=== PATIENT | male | born 1945 | race Caucasian/White ===

== ENCOUNTER 2016-08-18 07:27 | Emergency (ER) | payer MEDICARE, BC ==
[2016-08-18 07:47] VITALS: BP 143/81
[2016-08-18] MEDS ORDERED: Sodium Chloride 0.9% 10 ML Syringe FLUSH PRN (08:05)
[2016-08-18] MEDS ORDERED: HYDROmorphone 1 MG/ML Syringe IVPUSH ONE (08:06)
[2016-08-18] MEDS ORDERED: Cyclobenzaprine 10 MG Tab PO ONE (08:06)
[2016-08-18] MEDS ORDERED: Nitroglycerin 0.4 MG Tab.SL SL PRN (08:12)
--- NOTE | 2016-08-18 09:55 | EDM.PDOC ---
ED HPI LOWER BACK PAIN/INJURY - General Chief Complaint: Back Pain or Injury Stated Complaint: HAD KNEE SURGERY/SEVERE PAIN Time Seen by Provider: 08/18/16 08:00 Source: Reports: Patient, Family History Limitations: Reports: No limitations - History of Present Illness INITIAL COMMENTS - FREE TEXT/NARRATIVE: pt arrived with severe pain in the left lumbar area. He did fall prior to leaving the hosp on the . He was having some back pain prior to falling. He had Knee pain on fri or of last week. Timing/Duration: Reports: Hour(s):, Getting worse Location: Reports: lower Place: other (pt fell pripor to leaving the hosp.) - Related Data Allergies/ADRs: Allergies Allergy/AdvReac Type Severity Reaction Status Date / Time No Known Allergies Allergy Verified 08/18/16 07:50 Home Meds: Home Meds Multivitamin with Minerals [Multiple Vitamin] 1 tab PO DAILY 07/30/13 [History] Simvastatin [Zocor] 10 mg PO .3TIMES A WEEK 07/30/13 [History] Aspirin [Garvin Aspirin] 325 mg PO DAILY 06/29/15 [History] Urea [Urea 40% Crm] 1 applic TOP BID 04/22/16 [History] oxyCODONE 5 mg PO Q4HR PRN 08/18/16 [History] Past Medical History HEENT History: Reports: Impaired vision Cardiovascular History: Reports: High cholesterol, Other (see below) Other Cardiovascular History: rhumatic fever as child Respiratory History: Reports: Sleep apnea Gastrointestinal History: Reports: Colon polyp, GERD, Hiatal hernia Other Gastrointestinal History: patients states he thinks he has a hiatal hernia as a result of scar tissue from prior surgery Genitourinary History: Reports: Prostate disorder, Other (see below) Other Genitourinary History: frequent urination Musculoskeletal History: Reports: Arthritis, Fracture, Other (see below) Other Musculoskeletal History: inflammation of muscle to right shoulder and left knee pain and surgery for left knee replacement and also right knee replacement 14 years ago Oncologic (Cancer) History: Reports: Renal Other Oncologic History: left kidney removed as a result of cancer Dermatologic History: Reports: Psoriasis Other Dermatologic History: history of psoriasis to right knee - Infectious Disease History Infectious Disease History: Reports: Chicken pox, Measles, Mumps Other Infectious Disease History: rheumatic fever as a child - Past Surgical History HEENT Surgical History: Reports: Oral surgery, Tonsillectomy Cardiovascular Surgical History: Reports: None GI Surgical History: Reports: Colonoscopy, EGD, Gita fundoplication, Other ( see below) Other GI Surgeries/Procedures: left kidney removed removed few years ago due to cancer Musculoskeletal Surgical History: Reports: Knee replacement Other Musculoskeletal Surgeries/Procedures:: history of right knee replacement 10-14 years ago Oncologic Surgical History: Reports: Other (see below) Other Oncologic Surgeries/Procedures: left nephrectomy Social & Family History - Family History Family Medical History: Noncontributory - Tobacco Use Smoking Status *Q: Current Every Day Smoker Years of Tobacco use: 50 Packs/Tins Daily: 0.5 Used Tobacco, but Quit: No Second Hand Smoke Exposure: No - Caffeine Use Caffeine Use: Reports: Coffee - Alcohol Use Days Per Week of Alcohol Use: 5 Number of Drinks Per Day: 1 Total Drinks Per Week: 5 - Recreational Drug Use Recreational Drug Use: No ED ROS GENERAL - Review of Systems Review Of Systems: See Below Constitutional: Reports: no symptoms HEENT: Reports: No symptoms Respiratory: Reports: No Symptoms Cardiovascular: Reports: No symptoms Endocrine: Reports: no symptoms GI/Abdominal: Reports: No symptoms : Reports: other (some difficulty voiding. He is going in small amounts, He voided a small amount and had a bladder scan which showed 240. ) Musculoskeletal: Reports: other (Pain in the left side of his back. ) Skin: Reports: no symptoms Neurological: Reports: No Symptoms ED EXAM,LOWER BACK PAIN/INJURY - Physical Exam Exam: See Below Text/Narrative:: Pt arrived with pain in the left lumbar area. Exam Limited By: No limitations General Appearance: alert, anxious Ears: normal TMs Nose: normal inspection Throat/Mouth: Normal inspection Head: atraumatic Neck: normal inspection Respiratory/Chest: no respiratory distress Cardiovascular: regular rate, rhythm GI/Abdominal: soft, non tender (Male) Exam: Deferred Rectal (Males) Exam: Fecal impaction Back Exam: other (Pt is tender over the left lumbar area and appears ro have some sciatic irritation. ) Extremities: other ( Left knee is swollen but is not real uncomfortable for the pt, ) Neurological: alert, oriented x 3 Psychiatric: normal affect, anxious Course - Vital Signs Last Recorded V/S: Last Vital Signs Temp 37.3 C 08/18/16 07:46 Pulse 83 08/18/16 07:46 Resp 16 08/18/16 07:46 BP 143/81 H 08/18/16 07:46 Pulse Ox 94 L 08/18/16 07:46 - Orders/Labs/Meds Orders: Active Orders 24 hr Category Date Time Status Bladder Scan [RC] ONETIME Care 08/18/16 09:24 Active Lumbar Spine Min 4V [CR] Stat Exams 08/18/16 08:32 Taken Sodium Chloride 0.9% [Saline Flush] Med 08/18/16 08:05 Active 10 ml FLUSH ASDIRECTED PRN Saline Lock Insert [OM.PC] Routine Oth 08/18/16 08:05 Ordered Medication Orders Sodium Chloride (Saline Flush) 10 ml FLUSH ASDIRECTED PRN PRN Reason: Keep Vein Open Labs: Laboratory Tests 08/18/16 Range/Units 08:39 Urine Color Yellow Urine Appearance Clear Urine pH 5.0 (4.5-8.0) Ur Specific [place] 1.015 (1.008-1.030) Urine Protein Negative (NEGATIVE) mg/dL Urine Glucose (UA) Normal (NEGATIVE) mg/dL Urine Ketones Negative (NEGATIVE) mg/dL Urine Occult Blood Negative (NEGATIVE) Urine Nitrite Negative (NEGAITVE) Urine Bilirubin Negative (NEGATIVE) Urine Urobilinogen Normal (NORMAL) mg/dL Ur Leukocyte Esterase Negative (NEGATIVE) Urine RBC 0-5 (0-5) Urine WBC 0-5 (0-5) Ur Epithelial Cells Few Amorphous Sediment Not seen Urine Bacteria Few Urine Mucus Not seen Meds: Medications Generic Name Dose Route Start Last Admin Trade Name Freq PRN Reason Stop Dose Admin Sodium Chloride 10 ml 08/18/16 08:05 Saline Flush FLUSH ASDIRECTED PRN Keep Vein Open Discontinued Medications Generic Name Dose Route Start Last Admin Trade Name Freq PRN Reason Stop Dose Admin Cyclobenzaprine HCl 10 mg 08/18/16 08:06 08/18/16 08:19 Flexeril PO 08/18/16 08:07 10 mg ONETIME ONE Administration Hydromorphone HCl 1 mg 08/18/16 08:06 08/18/16 08:28 Dilaudid IVPUSH 08/18/16 08:07 1 mg ONETIME ONE Administration Nitroglycerin 0.4 mg 08/18/16 08:12 Nitrostat SL 08/18/16 08:23 Q5M PRN Chest Pain - Re-Assessments/Exams Free Text/Narrative Re-Assessment/Exam: 08/18/16 10:04 Pt has severe pain in his left lower back. He did have a fall prior tp leaving the hosp. An xray was obtained on the lumbar spine wich did not do show any fractures. He does have narrowing at the L5-S1 lumbar area. Departure - Departure Time of Disposition: 10:05 Disposition: Home, Self-Care 01 Condition: fair Clinical Impression: Lumbar back pain, History of total knee arthroplasty Forms: ED Department Discharge Care Plan Goals: appt with Dr Kennedy on Friday to assess his back problem, cont oxycodone for pain, flexeril 10mg at bedtime, torodol 10mg qid for the next 5 days for the low back pain. - My Orders Last 24 Hours: My Active Orders 08/18/16 08:05 Sodium Chloride 0.9% [Saline Flush] 10 ml FLUSH ASDIRECTED PRN Saline Lock Insert [OM.PC] Routine 08/18/16 08:32 Lumbar Spine Min 4V [CR] Stat 08/18/16 09:24 Bladder Scan [RC] ONETIME - Assessment/Plan Last 24 Hours: My Active Orders 08/18/16 08:05 Sodium Chloride 0.9% [Saline Flush] 10 ml FLUSH ASDIRECTED PRN Saline Lock Insert [OM.PC] Routine 08/18/16 08:32 Lumbar Spine Min 4V [CR] Stat 08/18/16 09:24 Bladder Scan [RC] ONETIME
[2016-08-18] MEDS ORDERED: Ketorolac 10 MG Tab PO ONE ×2 (10:10→10:33)
[2016-08-18] MEDS ORDERED: Ketorolac 60 MG/2 ML SDV IM ONE (10:28)
[2016-08-18] MEDS ORDERED: Acetaminophen/oxyCODONE 325-5 MG Tab PO ONE (10:29)
--- NOTE | 2016-08-19 09:14 | CR ---
Lumbar Spine Min 4V HISTORY: pain in left buttock after a fall. FINDINGS: There is mild rotoscoliosis of the lumbar spine convex to the left. Vertebral alignment is otherwise satisfactory. No compression fracture is identified. Moderate disc space narrowing is pre sent at L3-4, L4-5, and L5-S1. There is mild narrowing at L1-2 and L2-3. Small anterolateral aspirat ion noted diffusely along the lumbar spine. Spinous processes, posterior elements, and pedicles appe ar intact and in satisfactory alignment. Mild atherosclerotic calcification is noted in the distal a bdominal aorta. Perivertebral soft tissues are unremarkable. No definite pars defects can be seen on the oblique views. There is mild facet arthropathy bilaterally at L4-5 and L5-S1. IMPRESSION: Degenerative and hypertrophic changes lumbar spine. Slight rotoscoliosis convex to the l eft. No acute abnormality is identified.
== END 2016-08-18 11:12 | disposition home or self-care (01) ==
LOC: JP.ED 07:27
DX: M54.5 Low back pain (principal); E78.00 Pure hypercholesterolemia, unspecified; K21.9 Gastro-esophageal reflux disease without esophagitis; F17.210 Nicotine dependence, cigarettes, uncomplicated; Z85.53 Personal history of malignant neoplasm of renal pelvis; Z96.659 Presence of unspecified artificial knee joint; Z98.890 Other specified postprocedural states; Z90.5 Acquired absence of kidney; Z79.82 Long term (current) use of aspirin; Z79.899 Other long term (current) drug therapy
CPT/HCPCS: 72110; 81001; 96374; 99284; A9270; J1170

== ENCOUNTER 2018-12-24 06:31 | Day surgery (SDC) | payer MEDICARE ==
[2018-12-24] MEDS ORDERED: Sodium Chloride 0.9% 10 ML Syringe FLUSH PRN (07:00)
[2018-12-24 08:35] VITALS: BP 132/81; PULSE 58
--- NOTE | 2018-12-24 11:42 | OR ---
DATE OF PROCEDURE: 12/24/2018 POSTOPERATIVE CARE: Postoperative care will be provided mainly at the [address] [place] [address] [facility] in conjunction with [facility] / [facility]. PREOPERATIVE DIAGNOSIS: Cataract, left eye. POSTOPERATIVE DIAGNOSIS: Cataract, left eye. PROCEDURE: Phacoemulsification with intraocular lens placement, left eye. ANESTHESIA: Topical and intracameral. ESTIMATED BLOOD LOSS: Minimal. COMPLICATIONS: None. PATHOLOGY SPECIMENS: None. SURGICAL FINDINGS: None. INDICATION FOR PROCEDURE: The patient is a 73-year-old male with history of a visually significant cataract in the left eye, which interfered with activities of daily living. This consisted of a nuclear sclerosis cataract. Following careful discussion of the risks, benefits and alternatives to cataract extraction with intraocular lens placement including blindness and , the patient elected to proceed, and informed, written consent was obtained prior to the procedure. DESCRIPTION OF THE PROCEDURE: The patient was previously identified, and a maryse placed above the left eye. All sources, including the patient, indicated that the left eye was the correct eye. The patient was subsequently taken to the operating room where standard monitors were applied. The patient was then prepped and draped in the usual sterile fashion for ophthalmic surgery. Attention was first directed at the 12 o'clock position where a paracentesis port was fashioned. Shugar solution followed by Viscoat was instilled into the eye. Attention was then directed to the 8:30 position where a triplanar incision was made in a near-clear manner using a keratome. A continuous capsulorrhexis was then made using a combination of the cystotome and Utrata forceps. Hydrodissection was achieved using a balanced salt solution, and the lens rotated nicely. Phacoemulsification was then done using a modified [id number] technique without complication. Phaco time was 7.32 CDE. The remaining cortex was removed using the irrigation/aspiration handpiece. Provisc was then instilled into the eye. A Technis lens, model [id number], at 21.5 Diopters was then placed in the capsular bag using an Shell injector. The remaining viscoelastic was removed using the irrigation/aspiration forceps. All wounds were then checked and found to be watertight. The lid speculum and drapes were removed. Maxitrol ointment was placed in the patient's left eye, and the eye was shielded. The patient tolerated the procedure well. The patient was instructed to follow up tomorrow. All needle and sponge counts were correct at the end of the procedure. There were no surgical findings. Bridgette Gonzalez MD /[id number]
== END 2018-12-24 08:50 | disposition home or self-care (01) ==
LOC: JP.SDS 06:31
PROVIDERS: ATTEND Ophthalmology
DX: H25.12 Age-related nuclear cataract, left eye (principal); C64.9 Malignant neoplasm of unspecified kidney, except renal pelvis; N18.9 Chronic kidney disease, unspecified; F17.200 Nicotine dependence, unspecified, uncomplicated; M19.90 Unspecified osteoarthritis, unspecified site
CPT/HCPCS: 66984; V2632

== ENCOUNTER 2021-09-20 10:33 | Day surgery (SDC) | payer MEDICARE ==
[~2021-09-20 10:33] MED LIST: Midazolam 1 MG/ML 2 ML SDV ONE; Propofol 200 MG/20 ML SDV ONE; fentaNYL 100 MCG/2 ML SDV ONE
[2021-09-20] MEDS ORDERED: Sodium Chloride 0.9% 1,000 ML IV SCH (11:00)
[2021-09-20 12:55] VITALS: BP 138/76; PULSE 57
== END 2021-09-20 13:25 | disposition home or self-care (01) ==
LOC: JP.SDS 10:33
PROVIDERS: ATTEND Surgery
DX: Z12.11 Encounter for screening for malignant neoplasm of colon (principal); D12.0 Benign neoplasm of cecum; D12.5 Benign neoplasm of sigmoid colon; K57.30 Diverticulosis of large intestine without perforation or abscess without bleeding; F17.200 Nicotine dependence, unspecified, uncomplicated; N18.9 Chronic kidney disease, unspecified
CPT/HCPCS: 45380; 45385; J2250; J2704; J3010; J7030; 88305

== ENCOUNTER 2023-02-25 16:49 | Observation (INO) | payer OTHER, MEDICARE ==
[2023-02-25] MEDS ORDERED: Sodium Chloride 0.9% 10 ML Syringe FLUSH PRN (16:53)
[2023-02-25] MEDS ORDERED: fentaNYL 50 MCG/ML SDV IVPUSH ONE (17:01)
[2023-02-25] MEDS ORDERED: Naloxone 0.4 MG/ML SDV IVPUSH PRN ×3 (17:01→19:46)
[2023-02-25 17:04] LABS: BASOPHILS ABSOLUTE AUTO 0.01 K/uL (0.00-0.10); BASOPHILS PERCENT AUTO 0.1 % (0.1-1.3); EOSINOPHILS ABSOLUTE AUTO 0.08 K/uL (0.00-0.40); EOSINOPHILS PERCENT AUTO 0.8 % (0.0-5.4); HEMOGLOBIN 12.8 g/dL (12.9-16.9); IMMATURE GRAN ABSOLUTE AUTO 0.03 K/uL (0.00-0.23); IMMATURE GRAN PERCENT AUTO 0.3 % (0.0-0.7); LYMPHOCYTES ABSOLUTE AUTO 1.66 K/uL (0.8-3.3); LYMPHOCYTES PERCENT AUTO 15.6 % (11.4-47.7); MEAN CORPUSCULAR HEMOGLOBIN 30.1 pg (31.6-35.5); MEAN CORPUSCULAR HGB CONC 32.8 g/dL (31.6-35.5); MEAN CORPUSCULAR VOLUME 91.8 fL (81.4-99.0); MONOCYTES PERCENT AUTO 5.6 % (3.3-12.6); NEUTROPHILS ABSOLUTE AUTO 8.25 K/uL (1.0-7.6); NEUTROPHILS PERCENT AUTO 77.6 % (40.0-78.1); PLATELET COUNT,PLT 276 K/uL (130-375); RED BLOOD CELL COUNT 4.25 M/uL (4.14-5.76); WHITE BLOOD CELL COUNT,WBC 10.6 K/uL (3.2-11.0)
[2023-02-25 17:25] LABS: A/G RATIO 1.1 (1.2-2.2); ALANINE AMINOTRANSFERASE,ALT 22 U/L (12-78); ALBUMIN 3.6 g/dL (3.4-5.0); ALKALINE PHOSPHATASE 78 U/L (46-116); ASPARTATE AMNIOTRANSFERASE,AST 19 U/L (15-37); BILIRUBIN TOTAL 0.5 mg/dL (0.2-1.0); BLOOD UREA NITROGEN,BUN 24 mg/dL (7-18); CALCIUM 8.7 mg/dL (8.5-10.1); CARBON DIOXIDE,CO2 28 mmol/L (21-32); CHLORIDE,CL 102 mmol/L (100-108); CREATININE 1.4 mg/dL (0.8-1.3); EST CRCL DRUG DOSING (CG) 38.27 mL/min; ESTIMATED GFR 52 mL/min (>60); GLUCOSE RANDOM 106 mg/dL (74-106); POTASSIUM,K 4.1 mmol/L (3.6-5.2); PROTEIN TOTAL,TP 6.9 g/dL (6.4-8.2); SODIUM,NA 139 mmol/L (140-148)
[2023-02-25 17:47] LABS: ANION GAP 13.1 mmol/L (5.0-14.0)
[2023-02-25] MEDS: HYDROmorphone 0.5 MG/0.5 ML Syringe IVPUSH PRN ×2 (18:12→19:07)
[2023-02-25] MEDS ORDERED: diphenhydrAMINE 50 MG/ML SDV IVPUSH PRN (19:46)
[2023-02-25] MEDS ORDERED: HYDROmorphone/Normal Saline 6 MG/30 ML PCA Vial IV PRN (19:46)
[2023-02-25] MEDS ORDERED: diphenhydrAMINE 25 MG Cap PO PRN (19:46)
[2023-02-25] MEDS ORDERED: LORazepam 2 MG/ML SDV IV PRN (19:46)
[2023-02-25] MEDS ORDERED: Ondansetron 4 MG/2 ML SDV IVPUSH PRN (19:46)
[2023-02-25] MEDS ORDERED: Albuterol 0.083% 2.5 MG/3 ML Neb Soln NEB PRN (19:46)
[2023-02-25] MEDS: Sodium Chloride 0.9% 1,000 ML IV SCH (20:40)
[2023-02-25] MEDS: Melatonin 3 MG Tab PO SCH (20:41)
[2023-02-25] MEDS: Docusate Sodium 100 MG Cap PO SCH (20:41)
[2023-02-25] MEDS: Acetaminophen 1,000 MG in Premix Bag 1 BAG IV SCH (20:41)
[2023-02-25 20:44] LABS: APPEARANCE,URINE CLEAR (CLEAR); BILIRUBIN,URINE NEGATIVE (NEGATIVE); COLOR,URINE YELLOW (YELLOW); GLUCOSE,URINE NEGATIVE (NEGATIVE); KETONES,URINE TRACE mg/dL (NEGATIVE); LEUKOCYTE ESTERASE,URINE NEGATIVE (NEGATIVE); NITRITE,URINE NEGATIVE (NEGATIVE); OCCULT BLOOD,URINE TRACE-INTACT (NEGATIVE); PROTEIN,URINE NEGATIVE (NEGATIVE); UROBILINOGEN,URINE 0.2 EU/dL (0.2-1.0)
[2023-02-25 20:55] LABS: AMORPHOUS SEDIMENT,URINE NOT SEEN; BACTERIA,URINE FEW; EPITHELIAL CELLS,URINE NOT SEEN; MUCUS,URINE NOT SEEN; RBC,URINE 0-5 (0-5); WBC,URINE 0-5 (0-5)
[2023-02-25] MEDS ORDERED: Pantoprazole 40 MG Vial IV SCH (21:00)
[2023-02-25] MEDS: Nicotine 14 MG/24 Hr Patch TRDERM SCH (21:43)
[2023-02-26] MEDS: Acetaminophen 1,000 MG in Premix Bag 1 BAG IV SCH ×2 (01:39→07:47)
[2023-02-26] MEDS: Sodium Chloride 0.9% 1,000 ML IV SCH (05:34)
[2023-02-26 05:42] LABS: BASOPHILS PERCENT AUTO 0.3 % (0.1-1.3); EOSINOPHILS ABSOLUTE AUTO 0.17 K/uL (0.00-0.40); EOSINOPHILS PERCENT AUTO 2.2 % (0.0-5.4); HEMATOCRIT 34.7 % (38.4-49.7); HEMOGLOBIN 11.3 g/dL (12.9-16.9); IMMATURE GRAN PERCENT AUTO 0.3 % (0.0-0.7); LYMPHOCYTES ABSOLUTE AUTO 2.43 K/uL (0.8-3.3); LYMPHOCYTES PERCENT AUTO 31.4 % (11.4-47.7); MEAN CORPUSCULAR HEMOGLOBIN 30.1 pg (31.6-35.5); MEAN CORPUSCULAR HGB CONC 32.6 g/dL (31.6-35.5); MEAN CORPUSCULAR VOLUME 92.5 fL (81.4-99.0); MONOCYTES ABSOLUTE AUTO 0.55 K/uL (0.20-0.90); MONOCYTES PERCENT AUTO 7.1 % (3.3-12.6); NEUTROPHILS ABSOLUTE AUTO 4.54 K/uL (1.0-7.6); NEUTROPHILS PERCENT AUTO 58.7 % (40.0-78.1); PLATELET COUNT,PLT 231 K/uL (130-375); RED BLOOD CELL COUNT 3.75 M/uL (4.14-5.76); WHITE BLOOD CELL COUNT,WBC 7.7 K/uL (3.2-11.0)
[2023-02-26 05:49] LABS: BASOPHILS ABSOLUTE AUTO 0.02 K/uL (0.00-0.10); IMMATURE GRAN ABSOLUTE AUTO 0.02 K/uL (0.00-0.23)
[2023-02-26 06:04] LABS: CALCIUM 7.9 mg/dL (8.5-10.1); CREATININE 1.4 mg/dL (0.8-1.3); EST CRCL DRUG DOSING (CG) 38.5 mL/min; POTASSIUM,K 3.9 mmol/L (3.6-5.2)
[2023-02-26 06:09] LABS: ANION GAP 11.9 mmol/L (5.0-14.0)
[2023-02-26] MEDS: Docusate Sodium 100 MG Cap PO SCH ×2 (08:19→20:00)
[2023-02-26] MEDS: Bisacodyl 5 MG Tab PO PRN (08:19)
[2023-02-26] MEDS: Nicotine 14 MG/24 Hr Patch TRDERM SCH (08:41)
[2023-02-26] MEDS: HYDROmorphone 2 MG Tab PO PRN ×4 (09:32→21:28)
[2023-02-26] MEDS: Acetaminophen 500 MG Tab PO SCH (16:40)
[2023-02-26] MEDS: Melatonin 3 MG Tab PO SCH (20:00)
[2023-02-26] MEDS ORDERED: Pantoprazole 40 MG Tab.CR PO SCH (21:00)
[2023-02-27] MEDS: Acetaminophen 500 MG Tab PO SCH ×2 (00:01→09:07)
[2023-02-27] MEDS: Bisacodyl 5 MG Tab PO PRN (05:15)
[2023-02-27 05:19] VITALS: BP 122/59; PULSE 70
[2023-02-27 05:40] LABS: BASOPHILS PERCENT AUTO 0.1 % (0.1-1.3); EOSINOPHILS ABSOLUTE AUTO 0.21 K/uL (0.00-0.40); EOSINOPHILS PERCENT AUTO 2.8 % (0.0-5.4); HEMATOCRIT 35.3 % (38.4-49.7); HEMOGLOBIN 11.4 g/dL (12.9-16.9); IMMATURE GRAN PERCENT AUTO 0.1 % (0.0-0.7); LYMPHOCYTES ABSOLUTE AUTO 2.56 K/uL (0.8-3.3); LYMPHOCYTES PERCENT AUTO 34.2 % (11.4-47.7); MEAN CORPUSCULAR HEMOGLOBIN 30.1 pg (31.6-35.5); MEAN CORPUSCULAR HGB CONC 32.3 g/dL (31.6-35.5); MEAN CORPUSCULAR VOLUME 93.1 fL (81.4-99.0); MONOCYTES ABSOLUTE AUTO 0.59 K/uL (0.20-0.90); MONOCYTES PERCENT AUTO 7.9 % (3.3-12.6); NEUTROPHILS ABSOLUTE AUTO 4.11 K/uL (1.0-7.6); NEUTROPHILS PERCENT AUTO 54.9 % (40.0-78.1); PLATELET COUNT,PLT 214 K/uL (130-375); RED BLOOD CELL COUNT 3.79 M/uL (4.14-5.76); WHITE BLOOD CELL COUNT,WBC 7.5 K/uL (3.2-11.0)
[2023-02-27 05:41] LABS: BASOPHILS ABSOLUTE AUTO 0.01 K/uL (0.00-0.10); IMMATURE GRAN ABSOLUTE AUTO 0.01 K/uL (0.00-0.23)
[2023-02-27 05:55] LABS: ANION GAP 8.7 mmol/L (5.0-14.0); CALCIUM 8.4 mg/dL (8.5-10.1); CREATININE 1.4 mg/dL (0.8-1.3); EST CRCL DRUG DOSING (CG) 38.5 mL/min; POTASSIUM,K 4.5 mmol/L (3.6-5.2)
[2023-02-27] MEDS: HYDROmorphone 2 MG Tab PO PRN (09:06)
[2023-02-27] MEDS: Nicotine 14 MG/24 Hr Patch TRDERM SCH (09:07)
[2023-02-27] MEDS: Docusate Sodium 100 MG Cap PO SCH (09:07)
[2023-02-27] MEDS ORDERED: Magnesium Hydroxide 400 MG/5 ML Susp 30 ML Cup PO PRN (10:21)
== END 2023-02-27 10:30 | disposition home or self-care (01) ==
LOC: JP.ED 16:49 → JP.ICU 18:44
PROVIDERS: ADMIT Hospitalist; ATTEND Surgery
DX: S22.41XA Multiple fractures of ribs, right side, initial encounter for closed fracture (principal); S27.0XXA Traumatic pneumothorax, initial encounter; E78.00 Pure hypercholesterolemia, unspecified; K21.9 Gastro-esophageal reflux disease without esophagitis; M81.0 Age-related osteoporosis without current pathological fracture; F17.219 Nicotine dependence, cigarettes, with unspecified nicotine-induced disorders; Z20.822 Contact with and (suspected) exposure to COVID-19; Z79.82 Long term (current) use of aspirin; Z98.890 Other specified postprocedural states; Z85.528 Personal history of other malignant neoplasm of kidney; Z90.5 Acquired absence of kidney; V92.09XA Drowning and submersion due to fall off unspecified watercraft, initial encounter
CPT/HCPCS: 36415; 71046; 71250; 80048; 80053; 81001; 85025; 96374; 96375; 96376; 97161; 97530; 99222; 99232; 99285; A9270; C9113; J0131; J1170; J2405; J3010; J7030; U0002; 96361; G0378

== ENCOUNTER 2023-03-03 02:49 | Emergency (ER) | payer OTHER, MEDICARE ==
[2023-03-03 03:31] VITALS: BP 158/58; PULSE 65
[2023-03-03] MEDS ORDERED: Zolpidem 5 MG Tab PO ONE (03:48)
== END 2023-03-03 04:05 | disposition other institution (70) ==
LOC: JP.ED 02:49
DX: S27.0XXD Traumatic pneumothorax, subsequent encounter (principal); J40 Bronchitis, not specified as acute or chronic; Z79.82 Long term (current) use of aspirin; X58.XXXD Exposure to other specified factors, subsequent encounter
CPT/HCPCS: 71046; 87635; 99285; A9270; U0002

== ENCOUNTER 2023-04-10 00:36 | Inpatient (IN) | payer MEDICARE ==
[~2023-04-10 00:36] MED LIST changes: +Acetaminophen/HYDROcodone 325-5 MG Tab PO SCH; -Midazolam 1 MG/ML 2 ML SDV ONE; -Propofol 200 MG/20 ML SDV ONE; -fentaNYL 100 MCG/2 ML SDV ONE
[2023-04-10] MEDS ORDERED: Aluminum Hydroxide/Magnesium Hydroxide/Simethicone Susp 30 ML Cup PO STA ×2 (00:50→01:31)
[2023-04-10 01:10] LABS: BASOPHILS ABSOLUTE AUTO 0.04 K/uL (0.00-0.10); BASOPHILS PERCENT AUTO 0.3 % (0.1-1.3); EOSINOPHILS ABSOLUTE AUTO 0.32 K/uL (0.00-0.40); EOSINOPHILS PERCENT AUTO 2.6 % (0.0-5.4); HEMATOCRIT 38.5 % (38.4-49.7); HEMOGLOBIN 12.7 g/dL (12.9-16.9); IMMATURE GRAN ABSOLUTE AUTO 0.04 K/uL (0.00-0.23); IMMATURE GRAN PERCENT AUTO 0.3 % (0.0-0.7); LYMPHOCYTES PERCENT AUTO 19.7 % (11.4-47.7); MONOCYTES ABSOLUTE AUTO 0.87 K/uL (0.20-0.90); MONOCYTES PERCENT AUTO 7.1 % (3.3-12.6); NEUTROPHILS ABSOLUTE AUTO 8.54 K/uL (1.0-7.6); PLATELET COUNT,PLT 313 K/uL (130-375); RED BLOOD CELL COUNT 4.23 M/uL (4.14-5.76); WHITE BLOOD CELL COUNT,WBC 12.2 K/uL (3.2-11.0)
[2023-04-10 01:31] LABS: A/G RATIO 0.9 (1.2-2.2); ALANINE AMINOTRANSFERASE,ALT 10 U/L (12-78); ALBUMIN 3.4 g/dL (3.4-5.0); ALKALINE PHOSPHATASE 101 U/L (46-116); ASPARTATE AMNIOTRANSFERASE,AST 12 U/L (15-37); BILIRUBIN TOTAL 0.3 mg/dL (0.2-1.0); BLOOD UREA NITROGEN,BUN 26 mg/dL (7-18); C-REACTIVE PROTEIN 1.72 mg/dL (0.0-0.3); CALCIUM 8.9 mg/dL (8.5-10.1); CARBON DIOXIDE,CO2 28 mmol/L (21-32); CHLORIDE,CL 102 mmol/L (100-108); CREATININE 1.4 mg/dL (0.8-1.3); EST CRCL DRUG DOSING (CG) 38.27 mL/min; ESTIMATED GFR 52 mL/min (>60); GLUCOSE RANDOM 126 mg/dL (74-106); POTASSIUM,K 4.3 mmol/L (3.6-5.2); PROTEIN TOTAL,TP 7.3 g/dL (6.4-8.2); SODIUM,NA 139 mmol/L (140-148)
[2023-04-10] MEDS ORDERED: Ondansetron 4 MG Tab.DIS PO ONE (01:31)
[2023-04-10 01:34] LABS: ANION GAP 13.3 mmol/L (5.0-14.0)
[2023-04-10] MEDS ORDERED: Sodium Chloride 0.9% 10 ML Syringe FLUSH PRN ×2 (02:12→02:15)
[2023-04-10] MEDS ORDERED: Iopamidol 612 MG/ML 100 ML Bottle IV PRN (02:15)
[2023-04-10] MEDS ORDERED: Sodium Chloride 0.9% 50 ML IV SCH (02:15)
[2023-04-10] MEDS ORDERED: HYDROmorphone 1 MG/ML Syringe IVPUSH ONE (03:37)
[2023-04-10 03:42] LABS: CORONAVIRUS COVID-19 NAA NEGATIVE (NEGATIVE); INFLUENZA A NAA NEGATIVE (NEGATIVE); INFLUENZA B NAA NEGATIVE (NEGATIVE); RESPIRATORY SYNCYTIAL VIR NAA NEGATIVE (NEGATIVE)
[2023-04-10] MEDS ORDERED: Sodium Chloride 0.9% 1,000 ML IV SCH (03:45)
[2023-04-10] MEDS ORDERED: Prochlorperazine 10 MG/2 ML SDV IVPUSH ONE (03:49)
[2023-04-10] MEDS ORDERED: Ampicillin/Sulbactam Na 3 GM in Sodium Chloride 0.9% 100 ML IV ONE (03:54)
[2023-04-10] MEDS ORDERED: Morphine 4 MG/ML Syringe IVPUSH PRN (05:11)
[2023-04-10] MEDS ORDERED: Scopalamine 1mg/3day Transdermal Patch TRDERM PRN (05:11)
[2023-04-10] MEDS ORDERED: Nicotine 14 MG/24 Hr Patch TRDERM PRN (05:11)
[2023-04-10] MEDS ORDERED: Morphine 2 MG/ML SYRINGE IVPUSH PRN (05:11)
[2023-04-10] MEDS ORDERED: Ondansetron 4 MG/2 ML SDV IVPUSH PRN ×2 (05:11→09:18)
[2023-04-10] MEDS ORDERED: Promethazine 12.5 MG in Sodium Chloride 0.9% 50 ML IV PRN (05:11)
[2023-04-10] MEDS ORDERED: diphenhydrAMINE 25 MG Cap PO PRN (05:11)
[2023-04-10] MEDS ORDERED: [UNRECOGNIZED DRUG - REMARK] PRN (05:23)
[2023-04-10] MEDS: Morphine 2 MG/ML SYRINGE IVPUSH PRN ×3 (05:25→08:27)
[2023-04-10] MEDS ORDERED: diphenhydrAMINE 50 MG/ML SDV IVPUSH PRN (07:07)
[2023-04-10] MEDS ORDERED: fentaNYL 50 MCG/ML SDV IVPUSH PRN ×3 (07:13→07:14)
[2023-04-10] MEDS ORDERED: Ropivacaine 28 ML, dexAMETHasone 8 MG, EPINEPHrine 0.4 MG, Sodium Chloride 0.9% 49.6 ML NERVRT SCH ×4 (09:00)
[2023-04-10] MEDS ORDERED: metroNIDAZOLE/Normal Saline 500 MG in Premix Bag 1 BAG IV ONE (09:00)
[2023-04-10] MEDS ORDERED: ceFAZolin 2 GM in Sodium Chloride 0.9% 50 ML IV ONE (09:00)
[2023-04-10] MEDS ORDERED: fentaNYL 250 MCG/5 ML SDV ONE ×2 (09:07→10:12)
[2023-04-10] MEDS ORDERED: Rocuronium 50 MG/5 ML Vial ONE (09:08)
[2023-04-10] MEDS ORDERED: Neostigmine Methylsulfate 1 MG/ML 5 ML Syringe ONE (09:08)
[2023-04-10] MEDS ORDERED: Propofol 200 MG/20 ML SDV ONE (09:08)
[2023-04-10] MEDS ORDERED: Ondansetron 4 MG/2 ML SDV ONE (09:08)
[2023-04-10] MEDS ORDERED: Glycopyrrolate 0.2 MG/ML 5 ML MDV ONE (09:08)
[2023-04-10] MEDS ORDERED: Dexamethasone 4 MG/ML SDV ONE (09:08)
[2023-04-10] MEDS ORDERED: hydrOXYzine HCL 100 MG/2 ML SDV IM PRN (09:18)
[2023-04-10] MEDS ORDERED: Zolpidem 5 MG Tab PO PRN (09:18)
[2023-04-10] MEDS ORDERED: Benzocaine/Cetylpyridinium/Menthol Lozenge MUCMEM PRN (09:18)
[2023-04-10] MEDS ORDERED: Acetaminophen/HYDROcodone 325-5 MG Tab PO PRN (09:18)
[2023-04-10] MEDS ORDERED: fentaNYL 100 MCG/2 ML SDV IVPUSH PRN ×3 (09:18)
[2023-04-10] MEDS ORDERED: Docusate Sodium 100 MG Cap PO PRN (09:18)
[2023-04-10] MEDS ORDERED: Scopalamine 1mg/3day Transdermal Patch TOP ONE (10:00)
[2023-04-10] MEDS ORDERED: Indocyanine Green 25 MG SDV ONE (10:00)
[2023-04-10] MEDS: Bupivacaine 0.5%/EPINEPHrine 1:200,000 50 ML MDV ONE ×2 (10:06→10:35)
[2023-04-10] MEDS: Lidocaine 1% 50 ML MDV ONE ×2 (10:06→10:35)
[2023-04-10] MEDS ORDERED: Lactated Ringers 1,000 ML ONE (10:18)
[2023-04-10] MEDS ORDERED: Scopalamine 1mg/3day Transdermal Patch ONE (10:41)
[2023-04-10] MEDS: SCOPOLAMINE PATCH CHECK TOP SCH ×2 (12:11→12:41)
[2023-04-10 14:02] VITALS: BP 122/73; PULSE 83
== END 2023-04-10 16:30 | disposition critical access hospital (66) | DRG 418 ==
LOC: JP.ED 00:36 → JP.MS 03:56
PROVIDERS: ADMIT Surgery; ATTEND Surgery
PROC: BF532Z0 Other Imaging of Gallbladder and Bile Ducts using Fluorescing Agent, Intraoperative (ICD-10-PCS; 2023-04-10)
PROC: 0FT44ZZ Resection of Gallbladder, Percutaneous Endoscopic Approach (ICD-10-PCS; principal; 2023-04-10 09:30)
DX: K80.00 Calculus of gallbladder with acute cholecystitis without obstruction (principal); K82.1 Hydrops of gallbladder; F17.210 Nicotine dependence, cigarettes, uncomplicated; E78.00 Pure hypercholesterolemia, unspecified; G47.30 Sleep apnea, unspecified; K21.9 Gastro-esophageal reflux disease without esophagitis; M81.0 Age-related osteoporosis without current pathological fracture; Z96.659 Presence of unspecified artificial knee joint; Z90.5 Acquired absence of kidney; Z98.890 Other specified postprocedural states; Z98.49 Cataract extraction status, unspecified eye; Z86.010 Personal history of colon polyps; Z90.89 Acquired absence of other organs; Z79.82 Long term (current) use of aspirin; Z79.899 Other long term (current) drug therapy; Z11.52 Encounter for screening for COVID-19
CPT/HCPCS: 0241U; 36415; 71045; 71045-26; 74019; 74019-26; 74176; 80053; 83690; 85025; 86140; 88304; 96374; 96375; 99284; 99285-25; A9270-GY; J0171; J0295; J0690; J0780; J1100; J1170; J2001; J2270; J2405; J2704; J2710; J2795; J3010; J3490; J7030; J7120; Q0162